=== PATIENT | female | born 1955 | race Hispanic/Latino ===

== ENCOUNTER 2017-10-14 16:44 | Inpatient (IN) | payer BC ==
[~2017-10-14] VITALS: Ht 170.2 cm; Wt 108.9 kg
--- OUTSIDE RECORDS SUMMARY | 2017-10-14 16:46 | XMS REPORT | Clinical Summary ---
Author Author [facility] Address Unknown Phone Unavailable Care Team Providers Care Assistant Professor Of Geography Name Role Phone Asked, Pcp PCP Unavailable Allergies Active Allergy Reactions Severity Noted Date Comments Allopurinol Other (See Comments) Low 01/02/2016 Per patient it Effects "immune system" Current Medications Prescription Sig. Disp. Refills Start End Date Status Date carvedilol (COREG) 6.25 Take 6.25 mg by mouth 2 Active MG tablet (two) times a day with meals. eltrombopag (PROMACTA) 75 Take 150 mg by mouth Active MG tablet daily. febuxostat (ULORIC) 40 mg Take 40 mg by mouth Active tablet daily. traMADol (ULTRAM) 50 mg TAKE ONE (1) TABLET(S) BY 3 10/14/19 Active tablet MOUTH TWICE A DAY. 16 methylPREDNISolone TAKE TWO (2) TABLET(S) BY Active (MEDROL) 4 MG tablet MOUTH ONCE A DAY. furosemide (LASIX) 40 MG furosemide 40 mg tablet Active tablet furosemide (LASIX) 40 mg Take 1 tablet (40 mg 60 tablet 0 11/20/19 Active tablet total) by mouth 2 (two) 17 times a day. diphenhydrAMINE HCl 2 % Apply 1 application 1 Tube 0 11/20/19 Active gel topically 2 (two) times a 17 day. insulin regular Premix 70/30 60-50-50u 10 mL 1 12/13/19 Active (HumuLIN-R, NovoLIN-R) TIDAC 17 100 unit/mL injectionIndications: Type 2 diabetes mellitus without complication, unspecified terminal manager insulin use status folic acid (FOLVITE) 1 MG TAKE ONE (1) TABLET(S) BY 6 01/18/20 Active tablet MOUTH DAILY. 17 INCONTROL PEN NEEDLE 31 USE FOUR (4) TIMES A DAY 90 each 3 02/05/20 Active gauge x 1/4" needle WITH INSULIN PENS. 17 levothyroxine (SYNTHROID, Take 1 tablet (125 mcg 90 tablet 3 02/05/20 Active LEVOXYL) 125 mcg tablet total) by mouth every 17 morning. liraglutide (VICTOZA) 0.6 Inject 0.2 mL (1.2 mg 6 mL 0 02/05/20 Active mg/0.1 mL (18 mg/3 mL) total) under the skin 17 pen injectorIndications: daily. Type 2 diabetes mellitus without complication, unspecified usp insulin use status pen needle, diabetic 31 Take one needle four 100 each 2 02/05/20 Active gauge x 3/16" times daily to use with 17 needleIndications: Type 2 insulin Pens diabetes mellitus without complication, unspecified terminal manager insulin use status SENSIPAR 30 mg tablet Take 1 tablet (30 mg 90 tablet 3 02/05/20 Active total) by mouth daily. 17 HUMULIN 70/30 KWIKPEN 100 INJECT 60 UNITS 12 mL 9 04/17/20 Active unit/mL (70-30) SUBCUTANEOUSLY BEFORE 17 BREAKFAST AND 50 UNITS WITH LUNCH AND DINNER. spironolactone TAKE ONE (1) TABLET(S) BY 30 tablet 4 05/15/19 Active (ALDACTONE) 50 MG tablet MOUTH ONCE A DAY. 18 ONETOUCH ULTRA TEST strip USE ONE (1) STRIP TO 60 strip 2 06/29/19 Active test strips CHECK BLOOD GLUCOSE THREE 18 TIMES A DAY (BEFORE BREAKFAST, LUNCH AND BEFORE DINNER) DIRECTED. furosemide (LASIX) 40 MG Take 40 mg by mouth 2 11/20/19 Discontin tablet (two) times a day. 17 ued METHYLPREDNISOLONE ORAL Take by mouth. 08/20/19 Discontin 18 ued insulin regular Inject under the skin 3 12/13/19 Discontin (HumuLIN-R, NovoLIN-R) (three) times a day 17 ued 100 unit/mL injection before meals. liraglutide (VICTOZA) 0.6 Inject 1.2 mg under the 11/19/19 Discontin mg/0.1 mL (18 mg/3 mL) skin daily. 17 ued pen injector cyanocobalamin, vitamin Place 0.5 tablets (2,500 90 tablet 3 12/20/19 08/20/19 Discontin B-12, (VITAMIN B-12) mcg total) under the 16 18 ued 5,000 mcg tablet, tongue daily. sublingualIndications: B12 deficiency folic acid (FOLVITE) 1 MG Take 1 tablet (1 mg 30 tablet 11 12/20/19 12/20/19 tabletIndications: B12 total) by mouth daily. 16 17 deficiency spironolactone TAKE ONE (1) TABLET(S) BY 6 12/16/19 05/15/19 Discontin (ALDACTONE) 50 MG tablet MOUTH ONCE A DAY. 16 18 ued ONETOUCH ULTRA TEST strip USE ONE (1) STRIP TO 3 12/03/19 02/05/20 Discontin test strips CHECK BLOOD GLUCOSE THREE 16 17 ued TIMES A DAY (BEFORE BREAKFAST, LUNCH AND BEFORE DINNER) DIRECTED FOR 90 DAYS. cinacalcet (SENSIPAR) 30 Take 1 tablet (30 mg 90 tablet 3 01/02/20 01/11/20 Discontin MG tablet total) by mouth daily for 16 17 ued 90 days. glimepiride (AMARYL) 4 MG TAKE ONE (1) TABLET(S) BY 1 03/16/20 Discontin tablet MOUTH TWICE A DAY. 16 17 ued levothyroxine (SYNTHROID, Take 1 tablet (125 mcg 90 tablet 3 07/11/19 02/05/20 Discontin LEVOXYL) 125 mcg tablet total) by mouth every 17 17 ued morning. SENSIPAR 30 mg tablet Take 1 tablet (30 mg 90 tablet 3 07/11/19 Discontin total) by mouth daily. 17 17 ued cholecalciferol, vitamin Take 1,000 Units by mouth 08/20/19 Discontin D3, (VITAMIN D3) 1,000 daily. 18 ued unit tablet HUMULIN 70/30 KWIKPEN 100 Premix 70/30, take 39 pen 3 09/21/1904/16 Discontin unit/mL (70-30) 50-40-40u TIDAC. Dispense 17 17 ued with insulin pens. Pharmacy to dispense 3 month supply with 3 refills. liraglutide (VICTOZA) 0.6 Inject 0.2 mL (1.2 mg 6 mL 0 11/19/1907/29 Discontin mg/0.1 mL (18 mg/3 mL) total) under the skin 17 17 ued pen injector daily. liraglutide (VICTOZA) 0.6 Inject 0.2 mL (1.2 mg 6 mL 0 12/13/1909/28 Discontin mg/0.1 mL (18 mg/3 mL) total) under the skin 17 17 ued pen injectorIndications: daily. Type 2 diabetes mellitus without complication, unspecified usp insulin use status pen needle, diabetic 31 Take one needle four 100 each 2 12/13/19 Discontin gauge x 3/16" times daily to use with 17 17 ued needleIndications: Type 2 insulin Pens diabetes mellitus without complication, unspecified terminal manager insulin use status SENSIPAR 30 mg tablet TAKE ONE (1) TABLET(S) BY 30 tablet 2 01/11/20 02/05/20 Discontin MOUTH DAILY. 17 17 ued liraglutide (VICTOZA) 0.6 Inject 0.2 mL (1.2 mg 6 mL 0 01/15/20 Discontin mg/0.1 mL (18 mg/3 mL) total) under the skin 17 17 ued pen injectorIndications: daily. Type 2 diabetes mellitus without complication, unspecified terminal manager insulin use status INCONTROL PEN NEEDLE 31 USE FOUR (4) TIMES A DAY 2 01/09/20 02/05/20 Discontin gauge x 1/4" needle WITH INSULIN PENS. 17 17 ued ONETOUCH ULTRA TEST strip USE ONE (1) STRIP TO 100 strip 3 02/05/20 06/27/19 Discontin test strips CHECK BLOOD GLUCOSE THREE 17 18 ued TIMES A DAY (BEFORE BREAKFAST, LUNCH AND BEFORE DINNER) DIRECTED FOR 90 DAYS. SENSIPAR 30 mg tablet Take 1 tablet (30 mg 90 tablet 3 02/05/20 Discontin total) by mouth 2 (two) 17 17 ued times a day before meals. 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 Partial response to eltrombopag Anemia in chronic kidney disease 09/11/2015 Overview: [id number] Encounters Date Type Specialty Care Team Description 10/02/2017 Orders Only Hematology Iris Ramirez MA Other specified diseases of blood and blood-forming organs (Primary Dx) 08/19/2017 Lab Lab Christina Vasquez MD Other specified diseases of blood and blood-forming organs 08/19/2017 Office Visit Hematology Christina Vasquez MD Aplastic anemia 08/13/2017 Orders Only Hematology Iris Ramirez MA Other specified diseases of blood and blood-forming organs (Primary Dx) 07/13/2017 Refill Endocrinology Peter Daily MD 06/27/2017 Refill Endocrinology Uzair Frederick MD 05/20/2017 Lab Lab Christina Vasquez MD Other specified diseases of blood and blood-forming organs 05/20/2017 Office Visit Hematology Christina Vasquez MD Aplastic anemia (Primary Dx) 05/15/2017 Orders Only Hematology Iris Ramirez MA Other specified diseases of blood and blood-forming organs (Primary Dx) 05/15/2017 Refill Hematology Christina Vasquez MD 04/16/2017 Refill Endocrinology Uzair Frederick MD 02/06/2017 Telephone Endocrinology Uzair Frederick MD 02/04/2017 Office Visit Endocrinology Uzair Frederick MD Hypothyroidism, unspecified type (Primary Dx); Type 2 diabetes mellitus without complication, unspecified usp insulin use status; Primary hyperparathyroidism; Hyperparathyroidism; 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 01/14/2017 Orders Only Internal Medicine Emeli White Type 2 diabetes mellitus without complication, unspecified usp insulin use status 01/10/2017 Refill Endocrinology Kit Luque MD 12/30/2016 Telephone Internal Medicine Julianna Brand MA 12/12/2016 Refill Internal Medicine Margarita Naidu MA 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 (Primary Dx); Hypercalcemia; Type 2 diabetes mellitus without complication, unspecified usp insulin use status 11/19/2016 Lab Lab Christina Vasquez MD Other specified diseases of blood and blood-forming organs 11/19/2016 Office Visit Hematology Christina Vasquez MD Aplastic anemia (Primary Dx) 11/18/2016 Orders Only Internal Medicine ChristopherDebEmeli 11/14/2016 Nurse Only Oncology Christina Vasquez MD Anemia in chronic kidney disease (Primary Dx) 11/01/2016 Orders Only Hematology Iris Ramirez MA Other specified diseases of blood and blood-forming organs (Primary Dx) 10/17/2016 Nurse Only Oncology Christina Vasquez MD Anemia in chronic kidney disease (Primary Dx) after 10/13/2016 Social History Tobacco Use Types Packs/Day Years Used Date Never Smoker Smokeless Tobacco: Never Used Alcohol Use Drinks/Week oz/Week Comments No Sex Assigned at Date Recorded Not on file Last Filed Vital Signs Vital Sign Reading Time Taken Blood Pressure 146/66 08/19/2017 1:39 PM CDT Pulse 74 08/19/2017 1:39 PM CDT Temperature 36.3 C (97.3 F) 08/19/2017 1:39 PM CDT Respiratory Rate 95 08/19/2017 1:39 PM CDT Oxygen Saturation 100% 02/04/2017 9:06 AM CDT Inhaled Oxygen - - Concentration Weight 111 kg (244 lb) 08/19/2017 1:39 PM CDT Height 170.2 cm (5' 7") 08/19/2017 1:39 PM CDT Body Mass Index 38.22 08/19/2017 1:39 PM CDT Plan of Treatment Health Maintenance Due Date Last Done Comments DIABETIC FOOT EXAM 09/30/1965 DIABETIC RETINAL EYE EXAM 09/30/1965 CERVICAL CANCER SCREENING 09/30/1976 BREAST CANCER SCREENING 09/30/2005 COLON CANCER SCREENING 09/30/2005 SHINGRIX VACCINE (#1) 09/30/2005 ZOSTER VACCINE 2015 INFLUENZA VACCINE 12/10/2017 Results * Flow cytometry evaluation (08/19/2017 1:44 PM) Component Value Ref Range Flow cytometry evaluation See link below for PDF Lab Report Specimen Performing Laboratory [facility] DEPARTMENT OF PATHOLOGY AND GENOMIC MEDICINE [address] [place] [address] * Estimated GFR (08/19/2017 1:44 PM) Only the most recent of 4 results within the time period is included. Component Value Ref Range GFR Non Af Amer 42 (A) mL/min/1.73 m2 GFR Af Amer 50 (A) mL/min/1.73 m2 Comment: Chronic kidney disease: <60 mL/min/1.73m2 Kidney failure: <15 mL/min/1.73m2 The estimated GFR is calculated from the IDMS-traceable Modification of Diet in Renal Disease Equation. The accuracy of the calculation is poor when the creatinine is normal. Calculated values >90 mL/min/1.73m2 are not reported. This equation has not been validated in children (<18 years), women, the elderly (>70 years), or ethnic groups other than Caucasians and Americans. Specimen Performing Laboratory Plasma specimen [facility] DEPARTMENT OF PATHOLOGY AND GENOMIC MEDICINE [address] [place], [place] [id number] * Manual differential (08/19/2017 1:44 PM) Component Value Ref Range Manual differential PERFORMED Neutrophils 76.0 (H) 39.0 - 69.0 % Lymphocytes 16.0 (L) 25.0 - 45.0 % Monocytes 7.0 0.0 - 10.0 % Eosinophils 1.0 0.0 - 5.0 % Basophils 0.0 0.0 - 1.0 % Metamyelocytes 0 % Promyelocytes 0 % Platelet slide review Decreased (A) Anisocytosis Moderate Polychromasia Moderate Ovalocytes Moderate Enlarged platelets Moderate (A) Giant platelets Occasional Specimen Performing Laboratory [facility] DEPARTMENT OF PATHOLOGY AND [facility] MEDICINE [address] [place] [id number] * Reticulocyte count (08/19/2017 1:44 PM) Component Value Ref Range Retic %, auto 2.9 (H) 0.5 - 2.1 % Retic absolute, auto 0.0992 0.0210 - 0.1155 m/uL Specimen Performing Laboratory [facility] DEPARTMENT OF PATHOLOGY AND GENOMIC MEDICINE [address] [place] [id number] * CBC with platelet and differential (08/19/2017 1:44 PM) Only the most recent of 5 results within the time period is included. Component Value Ref Range WBC 8.84 4.50 - 11.00 k/uL RBC 3.54 (L) 4.20 - 5.50 m/uL HGB 12.8 12.0 - 16.0 g/dL HCT 39.1 37.0 - 47.0 % MCV 110.5 (H) 82.0 - 100.0 fL MCH 36.2 (H) 27.0 - 34.0 pg MCHC 32.7 31.0 - 37.0 g/dL RDW - SD 58.0 (H) 37.0 - 55.0 fL MPV 11.1 8.8 - 13.2 fL Platelet count 94 (L) 150 - 400 k/uL Nucleated RBC 0.00 /100 WBC Neutrophils 76.0 (H) 39.0 - 69.0 % Lymphocytes 16.0 (L) 25.0 - 45.0 % Monocytes 7.0 0.0 - 10.0 % Eosinophils 1.0 0.0 - 5.0 % Basophils 0.0 0.0 - 1.0 % Specimen Performing Laboratory Blood [facility] DEPARTMENT OF PATHOLOGY AND GENOMIC MEDICINE [address] [place] [id number] * LDH (08/19/2017 1:44 PM) Component Value Ref Range LDH 238 (H) 87 - 225 U/L Specimen Performing Laboratory Plasma specimen [facility] DEPARTMENT OF PATHOLOGY AND GENOMIC MEDICINE [address] [place] [id number] * Ferritin level (08/19/2017 1:44 PM) Only the most recent of 3 results within the time period is included. Component Value Ref Range Ferritin level 711 (H) 13 - 150 ng/mL Specimen Performing Laboratory Plasma specimen [facility] DEPARTMENT OF PATHOLOGY AND GENOMIC MEDICINE [address] [place] [id number] * Comprehensive metabolic panel (08/19/2017 1:44 PM) Only the most recent of 3 results within the time period is included. Component Value Ref Range Sodium 143 135 - 148 mEq/L Potassium 4.0 3.5 - 5.0 mEq/L Chloride 102 98 - 112 mEq/L CO2 23 (L) 24 - 31 mEq/L Anion gap 18 (H) 7 - 15 mEq/L Comment: Starting from August , anion gap calculation no longer incorporates potassium. Please note the change. BUN 35 (H) 8 - 23 mg/dL Creatinine 1.3 (H) 0.5 - 0.9 mg/dL Glucose 94 65 - 99 mg/dL Calcium 10.1 8.8 - 10.2 mg/dL Protein 7.9 6.3 - 8.3 g/dL Comment: 4.6-7.0 g/dL 1 week 4.4-7.6 g/dL 7 months-1year 5.1-7.3 g/dL 1-2 years 5.6-7.5 g/dL >3 years 6.0-8.0 g/dL 18-150 6.3-8.3 g/dL Albumin 3.4 (L) 3.5 - 5.0 g/dL A/G ratio 0.8 0.7 - 3.8 Alkaline phosphatase 106 (H) 35 - 104 U/L AST 19 10 - 35 U/L ALT 12 5 - 50 U/L Total bilirubin 0.7 0.0 - 1.2 mg/dL Specimen Performing Laboratory Plasma specimen [facility] DEPARTMENT OF PATHOLOGY AND GENOMIC MEDICINE [address] [place] [address] * Smear review (05/20/2017 1:43 PM) Only the most recent of 4 results within the time period is included. Component Value Ref Range Platelet slide review Decreased (A) Anisocytosis Moderate Polychromasia Moderate Specimen Performing Laboratory [facility] DEPARTMENT OF PATHOLOGY AND [facility] MEDICINE [address] [place] [address] * Thyroid stimulating hormone (02/04/2017 10:30 AM) Component Value Ref Range TSH 4.29 0.40 - 4.50 mIU/L Specimen Performing Laboratory Blood [facility] Narrative FASTING:YES * T4, free (02/04/2017 10:30 AM) Component Value Ref Range T4, free 1.3 0.8 - 1.8 ng/dL Specimen Performing Laboratory [facility] Narrative FASTING:YES * Phosphorus level (02/04/2017 10:30 AM) Component Value Ref Range Phosphorus 2.8 2.5 - 4.5 mg/dL Specimen Performing Laboratory [facility] Narrative FASTING:YES * Parathyroid hormone (02/04/2017 10:30 AM) Component Value Ref Range PTH 75 (H) 14 - 64 pg/mL Comment: Interpretive Guide Intact PTH Calcium ------- Normal Parathyroid Normal Normal Hypoparathyroidism Low or Low Normal Low Hyperparathyroidism Primary Normal or High High Secondary High Normal or Low Tertiary High High Non-Parathyroid Hypercalcemia Low or Low Normal High Specimen Performing Laboratory [facility] Narrative FASTING:YES * Hemoglobin A1c (02/04/2017 10:30 AM) Component Value Ref Range Hemoglobin A1C 7.1 (H) <5.7 % of total Hgb Comment: For someone without known diabetes, a hemoglobin A1c value of 6.5% or greater indicates that they may have diabetes and this should be confirmed with a follow-up test. For someone with known diabetes, a value <7% indicates that their diabetes is well controlled and a value greater than or equal to 7% indicates suboptimal control. A1c targets should be individualized based on duration of diabetes, age, comorbid conditions, and other considerations. Currently, no consensus exists regarding use of hemoglobin A1c for diagnosis of diabetes for children. Specimen Performing Laboratory Blood [facility] Narrative FASTING:YES * Creatinine level (11/14/2016 7:31 AM) Only the most recent of 2 results within the time period is included. Component Value Ref Range Creatinine 1.5Comment: Testing performed on the ISTAT 0.5 - 1.5 mg/dL instrument by . Specimen Performing Laboratory Plasma specimen [facility] DEPARTMENT OF PATHOLOGY AND GENOMIC MEDICINE [address] [place] [id number] after 10/13/2016 Insurance Payer Benefit Subscriber ID Type Phone Address Plan / Group BCBS BCBS xxxxxxxxxxxx PPO CHOICE PPO/[employer]IKOL MISTRY PPO Home:
[2017-10-14 17:46] LABS: BASOPHILS % 0.1 % (0.0-1.0); HEMATOCRIT 28.1 % (34.2-44.1); LYMPHOCYTES # (AUTO) 1.5 (1.0-3.2); LYMPHOCYTES % 8.7 % (18.0-39.1); MEAN CORPUSCULAR HEMOGLOBIN 34.1 pg (28-32); MEAN CORPUSCULAR VOLUME 106.4 fL (81-99); MONOCYTES # (AUTO) 0.7 (0.2-0.8); MONOCYTES % 4.2 % (4.4-11.3); NEUTROPHILS # (AUTO) 14.9 (2.1-6.9); NEUTROPHILS % 85.3 % (38.7-80.0); RED BLOOD COUNT 2.64 x10e6/uL (3.6-5.1); RED CELL DISTRIBUTION WIDTH 14.9 % (11.7-14.4)
[2017-10-14 17:47] LABS: PLATELET COUNT 74 x10e3/uL (140-360)
[2017-10-14 17:54] LABS: INR 1.37; PROTHROMBIN TIME 15.9 seconds (11.9-14.5)
[2017-10-14 17:57] LABS: PARTIAL THROMBOPLASTIN TIME 41.3 seconds (23.8-35.5)
--- NOTE | 2017-10-14 18:16 | Diagnostic Imaging Report ---
PROCEDURE: A single AP view of the chest. COMPARISON: None. INDICATIONS: GOUT, WEAKNESS FINDINGS: See impression. IMPRESSION: 1. exam limited by soft tissue attenuation from body habitus. 2. Partial obscuration of the right hemidiaphragm and right lateral costophrenic angle, likely representing small pleural effusion and associated atelectasis. 3. Linear opacity in the right midlung may represent subsegmental atelectasis versus small amount of fluid in the minor fissure. 4. No definite consolidation. 5. Enlarged cardiac silhouette. Central pulmonary venous congestion. Agustin Bryant M.D. Dictated by: Agustin Bryant M.D. on 10/14/2017 at 18:18 Electronically approved by: Agustin Bryant M.D. on 10/14/2017 at 18:18
[2017-10-14 18:17] LABS: CALCIUM 9.8 mg/dL (8.4-10.2); CREATININE, SERUM 1.87 mg/dL (0.57-1.11)
[2017-10-14 18:18] LABS: ALBUMIN 1.8 g/dL (3.5-5.0); ALBUMIN/GLOBULIN RATIO 0.4 (0.8-2.0); CREATINE KINASE MB 0.7 ng/mL (0-5.0)
[2017-10-14 18:19] LABS: MAGNESIUM 1.1 MG/DL (1.3-2.1)
[2017-10-14 18:24] LABS: THYROID STIMULATING HORMONE 3.115 uIU/mL (0.350-4.940)
[2017-10-14 19:12] LABS: CLARITY,URINE SL CLOUDY (CLEAR); COLOR,URINE YELLOW (YELLOW)
[2017-10-14 19:13] LABS: BILIRUBIN,URINE NEGATIVE (NEGATIVE); KETONES,URINE NEGATIVE (NEGATIVE); LEUKOCYTE ESTERASE ,URINE TRACE (NEGATIVE); NITRITE,URINE NEGATIVE (NEGATIVE); PROTEIN,URINE DIPSTICK TRACE (NEGATIVE); URINE UROBILINOGEN 0.2 mg/dL (0.2 - 1)
[2017-10-14] MEDS ORDERED: MAGNESIUM SULFATE 2GM/50ML 25 ML IV ONE (19:15)
[2017-10-14 19:23] LABS: RBC,URINE 0-5 /HPF (0-5)
[2017-10-14 19:24] LABS: AMORPHOUS SEDIMENT,URINE FEW (FEW); BACTERIA,URINE MANY /HPF; EPITHELIAL CELLS,URINE RARE /LPF; MUCUS,URINE FEW (RARE)
--- NOTE | 2017-10-14 20:43 | Diagnostic Imaging Report ---
PROCEDURE: CT CHEST WITHOUT CONTRAST CT scan of the chest WITHOUT intravenous contrast, using standard protocol. TECHNIQUE: The chest was scanned utilizing a multidetector helical scanner from the apex to the level of the adrenal glands. No IV contrast was administered due to low GFR. Coronal and sagittal multiplanar reformations were obtained. COMPARISON: [facility], DX, CHEST SINGLE (PORTABLE), 10/14/2017, 17:53. INDICATIONS: ABNORMAL CHEST X-RAY FINDINGS: Lines/tubes: None. Lungs and Airways: Multiple linear opacities in the lingula, bilateral lower lobes, and right middle lobe, likely representing subsegmental atelectasis or scarring. 3.7 x 1.8 cm focal subpleural density in the posteromedial right lower lobe (series 3, image 43), with multiple small airways and vessels running around it, consistent with round atelectasis. A triangular-shaped density in the posterior aspect of the right middle lobe against the major fissure (series 2, image 47 and sagittal image 28) has a fluid density component in its superior aspect (series 2, image 45 and sagittal image 34). Atelectatic changes are also noted in the posterior right lower lobe (series 2 image 54). Pleura: Suspected small right pleural effusion. Heart and mediastinum: Thyroid is unremarkable. Mild cardiomegaly. Atherosclerotic calcification of the coronary arteries and thoracic aorta. Aorta is not aneurysmal. Main pulmonary artery is enlarged, measuring 3.9 cm. Lymph nodes: No mediastinal, hilar, or axillary adenopathy. Abdomen: Limited views of the upper abdomen show no abnormality within the visualized liver, spleen, pancreas, or kidneys. 2.4 x 1.7 x 1.7 cm solid nodule in the right adrenal gland (series 2, image 61), which measures 30 HU. 1.2 and 2.0 cm peripherally calcified splenic artery aneurysms (series 2, image 55 and 57 and coronal images 54 and 56). Bones: No aggressive lytic lesion. 2 mm calcification in the left breast, likely representing a calcified fibroadenoma. IMPRESSION: 1. 3.7 cm focal subpleural density in the posteromedial right lower lobe consistent with round atelectasis. A triangular-shaped density in the posterior aspect of the right middle lobe against the major fissure likely represents another focus of round atelectasis. Given the partly loculated fluid superior to it. Atelectatic changes are noted in the right lower lobe, with a suspected small pleural effusion. Further evaluation, including determination of empyema, is limited by the lack of intravenous contrast. 2. Subsegmental atelectasis or scarring in the lingula, bilateral lower lobes, and right middle lobe. 3. Mild cardiomegaly. 4. Enlarged main pulmonary artery, suggesting pulmonary hypertension. 5. 2.4 cm solid nodule in the right adrenal gland, which remains indeterminate. 6. 1.2 and 2.0 cm peripherally calcified splenic artery aneurysms. Agustin Bryant M.D. Dictated by: Agustin Bryant M.D. on 10/14/2017 at 20:45 Electronically approved by: Agustin Bryant M.D. on 10/14/2017 at 20:45
[2017-10-14] MEDS ORDERED: SODIUM CHLORIDE 0.9% 1000ML 1,000 ML IV SCH (21:19)
[2017-10-14] MEDS: SODIUM CHLORIDE 0.9% 1000ML 1,000 ML IV SCH (21:26)
--- OUTSIDE RECORDS SUMMARY | 2017-10-14 21:27 | XMS REPORT | Clinical Summary ---
Author Author [facility] Address Unknown Phone Unavailable Care Team Providers Care Director Of Accounts Payable Name Role Phone Asked, Pcp PCP Unavailable [...] Type 2 diabetes mellitus without complication, unspecified termite control servicer insulin use status folic acid (FOLVITE) 1 [...] Type 2 diabetes mellitus without complication, unspecified group home insulin use status pen needle, diabetic 31 Take one needle four 100 each 2 02/05/20 Active gauge x 3/16" times daily to use with 17 needleIndications: Type 2 insulin Pens diabetes mellitus without complication, unspecified termite control servicer insulin use status SENSIPAR 30 mg tablet [...] Type 2 diabetes mellitus without complication, unspecified group home insulin use status pen needle, diabetic 31 Take one needle four 100 each 2 12/13/19 Discontin gauge x 3/16" times daily to use with 17 17 ued needleIndications: Type 2 insulin Pens diabetes mellitus without complication, unspecified termite control servicer insulin use status SENSIPAR 30 mg tablet TAKE ONE (1) TABLET(S) BY 30 tablet 2 01/11/20 02/05/20 Discontin MOUTH DAILY. 17 17 ued liraglutide (VICTOZA) 0.6 Inject 0.2 mL (1.2 mg 6 mL 0 01/15/20 Discontin mg/0.1 mL (18 mg/3 mL) total) under the skin 17 17 ued pen injectorIndications: daily. 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 01/14/2017 Orders Only Internal Medicine Emeli White Type 2 diabetes mellitus without complication, unspecified group home insulin use status 01/10/2017 Refill Endocrinology Kit Luque MD 12/30/2016 Telephone Internal Medicine Julianna Brand MA 12/12/2016 Refill Internal Medicine Margarita Naidu MA 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 Specimen Performing Laboratory Plasma specimen [facility] DEPARTMENT OF PATHOLOGY AND GENOMIC MEDICINE [address] [place], [place] [id number] * Manual differential (08/19/2017 1:44 PM) Component [...] (A) Giant platelets Occasional Specimen Performing Laboratory [facility] DEPARTMENT OF PATHOLOGY AND [facility] MEDICINE [address] [place] [address] * Reticulocyte count (08/19/2017 1:44 PM) Component Value Ref Range Retic %, auto 2.9 (H) 0.5 - 2.1 % Retic absolute, auto 0.0992 0.0210 - 0.1155 m/uL Specimen Performing Laboratory [facility] DEPARTMENT OF PATHOLOGY AND GENOMIC MEDICINE [address] [place] [id number] * CBC with platelet and differential (08/19/2017 [...] - 1.0 % Specimen Performing Laboratory Blood [facility] DEPARTMENT OF PATHOLOGY AND GENOMIC MEDICINE [address] [place] [id number] * LDH (08/19/2017 1:44 PM) Component Value Ref Range LDH 238 (H) 87 - 225 U/L Specimen Performing Laboratory Plasma specimen [facility] DEPARTMENT OF PATHOLOGY AND GENOMIC MEDICINE [address] [place] [phone] * Ferritin level (08/19/2017 1:44 PM) Only the most recent of 3 results within the time period is included. Component Value Ref Range Ferritin level 711 (H) 13 - 150 ng/mL Specimen Performing Laboratory Plasma specimen [facility] DEPARTMENT OF PATHOLOGY AND GENOMIC MEDICINE [address] [place] [address] * Comprehensive metabolic panel (08/19/2017 1:44 PM) [...] 1.2 mg/dL Specimen Performing Laboratory Plasma specimen [facility] DEPARTMENT OF PATHOLOGY AND GENOMIC MEDICINE [address] [place] [address] * Smear review (05/20/2017 1:43 PM) Only the most recent of 4 results within the time period is included. Component Value Ref Range Platelet slide review Decreased (A) Anisocytosis Moderate Polychromasia Moderate Specimen Performing Laboratory [facility] DEPARTMENT OF PATHOLOGY AND [facility] MEDICINE [address] [place] [address] * Thyroid stimulating hormone (02/04/2017 10:30 AM) [...] by . Specimen Performing Laboratory Plasma specimen [facility] DEPARTMENT OF PATHOLOGY AND GENOMIC MEDICINE [address] [place] [address] after 10/13/2016 Insurance Payer Benefit Subscriber ID Type Phone Address Plan / Group BCBS BCBS xxxxxxxxxxxx PPO CHOICE PPO/MAIKOL MISTRY PPO Home:
--- OUTSIDE RECORDS SUMMARY | 2017-10-14 21:27 | XMS REPORT ---
Author Author [facility] Address Unknown Phone Unavailable Care Team Providers Care Snowboard Designer Name Role Phone JOE SKINNER Unavailable Unavailable Problems This patient has no known problems. Allergies, Adverse Reactions, Alerts This patient has no known allergies or adverse reactions. Medications This patient has no known medications. Results Test Description Test Time Test Comments Text Results Atomic Results Result Comments CT CHEST WO [place] [address] Patient Name: ASHLEY MANZANO MR #: [id number] : 1955 Age/Sex: 62/F Req #: [id number] Adm Physician: Ordered by: ROSIE VANCE HAT CLEANER Report #: [id number] Location: ER Room/Bed: Procedure: [id number] CT/CT CHEST WO Exam Date: 10/14/17 Exam Time: 1939 REPORT STATUS: Signed PROCEDURE: CT CHEST WITHOUT CONTRAST CT scan of the chest WITHOUT intravenous contrast, using standard protocol. TECHNIQUE: The chest was scanned utilizing a multidetector helical scanner from the apex to the level of the adrenal glands. No IV contrast was administered due to low GFR. Coronal and sagittal multiplanar reformations were obtained. COMPARISON: [facility], , CHEST SINGLE ( PORTABLE), 10/14/2017, 17:53. INDICATIONS: ABNORMAL CHEST X-RAY FINDINGS: Lines/tubes: None. Lungs and Airways: Multiple linear opacities in the lingula, bilateral lower lobes, and right middle lobe, likely representing subsegmental atelectasis or scarring. 3.7 x 1.8 cm focal subpleural density in the posteromedial right lower lobe (series 3, image 43), with multiple small airways and vessels running around it, consistent with round atelectasis. A triangular-shaped density in the posterior aspect of the right middle lobe against the major fissure (series 2 , image 47 and sagittal image 28) has a fluid density component in its superior aspect (series 2, image 45 and sagittal image 34). Atelectatic changes are also noted in the posterior right lower lobe (series 2 image 54) . Pleura: Suspected small right pleural effusion. Heart and mediastinum : Thyroid is unremarkable. Mild cardiomegaly. Atherosclerotic calcification of the coronary arteries and thoracic aorta. Aorta is not aneurysmal. Main pulmonary artery is enlarged, measuring 3.9 cm. Lymph nodes: No mediastinal, hilar, or axillary adenopathy. Abdomen: Limited views of the upper abdomen show no abnormality within the visualized liver, spleen, pancreas, or kidneys. 2.4 x 1.7 x 1.7 cm solid nodule in the right adrenal gland (series 2, image 61), which measures 30 HU. 1.2 and 2.0 cm peripherally calcified splenic artery aneurysms (series 2, image 55 and 57 and coronal images 54 and 56). Bones: No aggressive lytic lesion. 2 mm calcification in the left breast, likely representing a calcified fibroadenoma. IMPRESSION: 1. 3.7 cm focal subpleural density in the posteromedial right lower lobe consistent with round atelectasis. A triangular-shaped density in the posterior aspect of the right middle lobe against the major fissure likely represents another focus of round atelectasis. Given the partly loculated fluid superior to it. Atelectatic changes are noted in the right lower lobe, with a suspected small pleural effusion. Further evaluation, including determination of empyema, is limited by the lack of intravenous contrast. 2. Subsegmental atelectasis or scarring in the lingula, bilateral lower lobes, and right middle lobe. 3. Mild cardiomegaly. 4. Enlarged main pulmonary artery, suggesting pulmonary hypertension. 5. 2.4 cm solid nodule in the right adrenal gland, which remains indeterminate. 6. 1.2 and 2.0 cm peripherally calcified splenic artery aneurysms. Monroe. Annette, M.D. Dictated by: Love Bryant M.D. on 10/14/2017 at 20:45 Electronically approved by: Love Bryant M.D. on 10/14/2017 at 20:45 Dictated By: LOVE BRYANT MD 44 Transcribed By: PENNIE on 10/14/172044 COPY TO: ROSIE VANCE HAT CLEANER CHEST SINGLE (PORTABLE) [place] [address] Patient Name: ASHLEY MANZANO MR #: [id number] : 1955 Age/Sex: 62/F Req #: [id number] Adm Physician: Ordered by: ROSIE VANCE HAT CLEANER Report #: [id number] Location: ER Room/Bed: Procedure: [id number] DX/CHEST SINGLE (PORTABLE) Exam Date: 10/14/17 Exam Time: 1753 REPORT STATUS: Signed PROCEDURE: A single AP view of the chest. COMPARISON: None. INDICATIONS: GOUT, WEAKNESS FINDINGS: See impression. IMPRESSION: 1. exam limited by soft tissue attenuation from body habitus. 2. Partial obscuration of the right hemidiaphragm and right lateral costophrenic angle, likely representing small pleural effusion and associated atelectasis. 3. Linear opacity in the right midlung may represent subsegmental atelectasis versus small amount of fluid in the minor fissure. 4. No definite consolidation. 5. Enlarged cardiac silhouette. Central pulmonary venous congestion. Love Bryant M.D. Dictated by: Love Bryant M.D. on 10/14/2017 at 18:18 Electronically approved by: Love Bryant M.D. on 2017 at 18:18 Dictated By: LOVE BRYANT MD 18 Transcribed By: PENNIE on 1818 COPY TO: ROSIE VANCE NP
[2017-10-14] MEDS ORDERED: ONDANSETRON HCL INJ 2 MG/ML VIAL IV PRN (21:30)
[2017-10-14] MEDS ORDERED: DEXTROSE 50% SYRINGE 50 ML IV PRN (21:30)
[2017-10-14] MEDS ORDERED: CEFTRIAXONE SOD 1 GM VIAL IV ONE (21:30)
[2017-10-15] VITALS (9 sets, daily range): BP systolic 121–149; BP diastolic 58–65
[2017-10-15] MEDS ORDERED: SENSIPAR30 MG PO (01:59)
[2017-10-15] MEDS ORDERED: LEVOTHYROXINE112 MCG PO (01:59)
[2017-10-15] MEDS ORDERED: VICTOZA 2-0.6 MG/0.1 (01:59)
[2017-10-15] MEDS ORDERED: ULORIC40 MG PO (01:59)
[2017-10-15] MEDS ORDERED: FUROSEMIDE40 MG PO (01:59)
[2017-10-15] MEDS ORDERED: CARVEDILOL3.125 MG PO (01:59)
[2017-10-15] MEDS ORDERED: PROMACTA75 MG PO (01:59)
[2017-10-15] MEDS ORDERED: SPIRONOLACTONE25 MG PO (01:59)
[2017-10-15] MEDS ORDERED: FOLIC ACID1 MG PO (01:59)
[2017-10-15] MEDS: SODIUM CHLORIDE 0.9% 1000ML 1,000 ML IV SCH (06:10)
[2017-10-15 06:48] LABS: BASOPHILS % 0.1 % (0.0-1.0); HEMATOCRIT 23.9 % (34.2-44.1); HEMOGLOBIN 7.8 g/dL (12.0-16.0); LYMPHOCYTES # (AUTO) 1.1 (1.0-3.2); LYMPHOCYTES % 9.3 % (18.0-39.1); MEAN CORPUSCULAR HEMOGLOBIN 34.7 pg (28-32); MEAN CORPUSCULAR HGB CONC 32.6 g/dL (31-35); MEAN CORPUSCULAR VOLUME 106.2 fL (81-99); MONOCYTES # (AUTO) 0.5 (0.2-0.8); MONOCYTES % 4.5 % (4.4-11.3); NEUTROPHILS # (AUTO) 9.9 (2.1-6.9); NEUTROPHILS % 84.7 % (38.7-80.0); PLATELET COUNT 58 x10e3/uL (140-360); RED BLOOD COUNT 2.25 x10e6/uL (3.6-5.1); RED CELL DISTRIBUTION WIDTH 14.9 % (11.7-14.4)
[2017-10-15 07:13] LABS: ALBUMIN 1.5 g/dL (3.5-5.0); ALBUMIN/GLOBULIN RATIO 0.4 (0.8-2.0); ANION GAP 11.6 mmol/L (8-16); CALCIUM 9.5 mg/dL (8.4-10.2); CREATININE, SERUM 1.65 mg/dL (0.57-1.11); POTASSIUM 4.6 mmol/L (3.5-5.1)
[2017-10-15] MEDS ORDERED: INSULIN REGULAR, HUMAN 100 UNIT/1 ML 3ML VIAL SQ SCH (07:30)
[2017-10-15] MEDS ORDERED: DEXTROSE 50% SYRINGE 50 ML IV PRN (09:45)
[2017-10-15] MEDS ORDERED: NON-FORMULARY MEDICATION (Liraglutide (Victoza 2-Pak) 1.8 MG) INJ SCH ×2 (09:45)
--- NOTE | 2017-10-15 11:04 | History and Physical ---
This is a patient of Dr. Douglas, Dr. Crockett and Dr. Martinez. Patient with a history of generalized weakness and inability to eat. History of chronic kidney disease. History of gouty arthritis. History of aplastic anemia, which she relates to allopurinol and Colcrys. She is currently on Promacta. Her platelet counts usually run about 50,000. She has complained over the last few weeks of swelling in the right hand, wrist, knees and ankles. Leslie to be a flare of her gout. She was given steroids but has had an equivocal response. She has a history of diabetes and hypothyroidism. No surgical history. 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 Medications include Coreg, Sensipar, Promacta, folic acid, Uloric, Lasix, Levoxyl, Victoza and Aldactone. She has been weak. She denies cough or shortness of breath. She has been diabetic for 15 years. PHYSICAL EXAMINATION GENERAL: A well-developed, moderately obese, white female in no acute distress. VITALS: Temperature 98, pulse 71, respirations 18, blood pressure 128/51. HEENT: Head is normocephalic, atraumatic. NECK: Trachea midline. LUNGS: Clear. HEART: Regular rhythm. ABDOMEN: Nontender. EXTREMITIES: There is swelling in the hands and ankles. She has a history of aplastic anemia. LABS: White count on admission 17,000, hemoglobin 9, neutrophils 14.9, 85%. There were also some immature forms. Sed rate was 109. BUN 71, creatinine 1.63. Elevated blood sugar. Moderately elevated alkaline phosphatase. Albumin is quite low. PLAN: IV fluids. Therapy of urinary tract infection. Hematologic and ID opinions. Corticosteroids once the patient has been stabilized. Thank you for this kind referral. Job#: [id number] cc:ROSIE DOUGLAS M.D.
[2017-10-15] MEDS ORDERED: ACETAMINOPHEN 325 MG TAB PO PRN (11:30)
[2017-10-15] MEDS ORDERED: CELECOXIB 100 MG CAP PO PRN (11:30)
[2017-10-15] MEDS: ACETAMINOPHEN/CODEINE 300MG - 30MG TAB PO PRN (11:39)
[2017-10-15 12:25] LABS: CREATININE,URINE RANDOM 102.57 mg/dL (47-110)
[2017-10-15] MEDS: INSULIN LISPRO 100 UNIT/1 ML 3ML VIAL SQ SCH ×3 (12:51→20:39)
--- NOTE | 2017-10-15 14:36 | Consultation ---
DATE OF CONSULTATION: REASON FOR CONSULTATION: Joint pain. This patient who is a very pleasant 62 year old with a history of chronic kidney disease, history of gout, aplastic anemia. The patient comes in with worsening pain of all joints. She has been seeing Dr. Crockett as an outpatient. She has been taking several medications. Nothing is working. The pain is so bad now that it is debilitating. The patient is in bed. She has redness and swelling of her right wrist, both ankles. The patient is admitted. Infectious disease was consulted. The patient does not per se complaining of fever or chills. She is telling me she recently finished a course of Medrol pack without any improvement. Patient denies any history of trauma. Denies any history of fever or chills before this. PAST MEDICAL HISTORY: Hypothyroidism, gout and hypertension. PAST SURGICAL HISTORY: Denies. ALLERGIES: NKA. SOCIAL HISTORY: There is no smoking, drug abuse or alcohol abuse. MEDICATION LIST: Reviewed. PHYSICAL EXAMINATION GENERAL: She is currently alert and oriented. Does not seem to be in acute distress. VITAL SIGNS: Stable. Afebrile. HEENT: She is nonicteric. NECK: Supple. CHEST: Clear. CORE: S1 and S2. No murmur. ABDOMEN: Soft. Bowel sounds present. No tenderness. No hepatosplenomegaly. EXTREMITIES: No edema. There is erythema and edema of both ankles and the wrist. IMPRESSION: Acute gout flare-up. Will put on Solu-Medrol. Agree with Rocephin. Will get blood cultures to rule out other possibilities of infections. Will follow with you. Job#: [id number] SOBIA
--- NOTE | 2017-10-15 16:35 | Consultation ---
DATE OF CONSULTATION: October 15, 2017 RENAL CONSULTATION ADMITTING PHYSICIAN: Dr. Nitin Hamm REASON FOR CONSULTATION: Acute kidney injury on chronic kidney disease. HISTORY OF PRESENT ILLNESS: This 62-year-old female, with history of stage-3 chronic kidney disease [facility], was sent to [facility] by her primary care doctor for volume depletion and gout. The patient states she was in her usual state of health until September 08 when she developed a gout flare. The patient was treated with steroids; however, she did not improve. She was taking in very little by mouth. She began to feel weaker and weaker and was sent to the hospital. The patient was found to have thrombocytopenia, anemia, leukocytosis, as well as renal failure. The patient was admitted, and nephrology consultation was called. REVIEW OF SYSTEMS: As above. Positive pain in her hands as well as her legs. No shortness of breath. Some localized swelling around her joints. All other systems negative. PAST MEDICAL HISTORY 1. Chronic kidney disease, stage 3. Baseline creatinine around 1.3 per patient. 2. Gout. 3. History of aplastic anemia. 4. Diabetes. 5. Hypothyroidism. PAST SURGICAL HISTORY: History of chest tube. SOCIAL HISTORY: No tobacco. No alcohol. No IV drugs. FAMILY HISTORY: No family history of kidney disease. ALLERGIES: ALLOPURINOL AND COLCRYS. CURRENT MEDICATIONS: See list. PHYSICAL EXAMINATION VITALS: Blood pressure 149/64, pulse 78, respiratory rate 18, temperature 96.6. GENERAL: No apparent distress. HEENT: Oropharynx is clear. No scleral icterus. No periorbital edema. NECK: Supple. No elevation in jugular venous pressure. No lymphadenopathy, although difficult to assess due to body habitus. CHEST: Clear to auscultation anteriorly with decreased breath sounds at the bases. CARDIOVASCULAR: Regular rhythm. No murmurs or rubs. ABDOMEN: Soft. Positive bowel sounds. No tenderness. No rebound. EXTREMITIES: Trace leg edema. Localized edema in hands, right greater than left. SKIN: Warm. IMAGING: CT of the chest: A 3.7-cm focal subpleural density in the posteromedial right lower lobe consistent with round atelectasis. Mild cardiomegaly. Subsegmental atelectasis. Enlarged pulmonary artery suggesting pulmonary hypertension. A 2.4-cm solid nodule in the right adrenal gland, which remains indeterminate. Chest x-ray: Vascular congestion. LABS: White count 11.6, down from 17.4. Hemoglobin 7.8, down from 9. Platelets 58, down from 74. Sed rate 109. Sodium 131, potassium 4.6, chloride 99, CO2 25, BUN 71, creatinine 1.65, glucose 194. Uric acid 2.4. Alk phos 157. Albumin 1.5. Total protein 5.6. Urine: 6-10 WBCs, many bacteria, trace protein. ASSESSMENT AND PLAN 1. Acute kidney injury on stage-3 chronic kidney disease, suspect secondary to acute tubular necrosis. Will discontinue Celebrex and continue with Lasix. Will check urine studies and avoid all other nephrotoxic medications. 2. Volume overload on exam. Continue Lasix and spironolactone. Discontinue IV fluids as above. 3. Gout. Uric acid is 2.4. Unclear if this is the actual etiology of her symptoms. 4. Hyponatremia. Restrict the patient's free water. Continue with diuretics. 5. Adrenal adenoma. Will need outpatient workup. 6. Hypertension. Blood pressure controlled. 7. Anemia and thrombocytopenia. Hematology has been consulted. Job#: [id number]
[2017-10-15] MEDS ORDERED: ELTROMBOPAG OLAMINE 75 MG PO SCH (17:00)
[2017-10-15] MEDS ORDERED: FUROSEMIDE 40 MG TAB PO SCH (17:00)
[2017-10-15] MEDS: FUROSEMIDE 40 MG TAB PO SCH (17:23)
[2017-10-15] MEDS: METHYLPREDNISOLONE SOD SUCC 40 MG/ML VIAL IV SCH (20:38)
[2017-10-15] MEDS ORDERED: CEFTRIAXONE SOD 1 GM VIAL IV SCH (21:30)
[2017-10-15] MEDS: CEFTRIAXONE SOD 1 GM VIAL IV SCH (22:00)
[2017-10-16] VITALS (8 sets, daily range): BP systolic 116–153; BP diastolic 57–66
[2017-10-16] MEDS: LEVOTHYROXINE SODIUM 125 MCG TAB PO SCH (06:15)
[2017-10-16 07:30] LABS: ANION GAP 12.2 mmol/L (8-16); CALCIUM 10.2 mg/dL (8.4-10.2); CREATININE, SERUM 1.25 mg/dL (0.57-1.11); POTASSIUM 5.2 mmol/L (3.5-5.1)
[2017-10-16] MEDS ORDERED: FUROSEMIDE 40 MG TAB PO SCH (07:30)
[2017-10-16] MEDS: INSULIN LISPRO 100 UNIT/1 ML 3ML VIAL SQ SCH ×4 (07:30→20:46)
[2017-10-16 07:39] LABS: HEMATOCRIT 24.9 % (34.2-44.1); HEMOGLOBIN 7.9 g/dL (12.0-16.0); MEAN CORPUSCULAR HEMOGLOBIN 34.1 pg (28-32); MEAN CORPUSCULAR HGB CONC 31.7 g/dL (31-35); MEAN CORPUSCULAR VOLUME 107.3 fL (81-99); NEUTROPHILS % 82.9 % (38.7-80.0); PLATELET COUNT 61 x10e3/uL (140-360); RED BLOOD COUNT 2.32 x10e6/uL (3.6-5.1); RED CELL DISTRIBUTION WIDTH 14.8 % (11.7-14.4)
[2017-10-16 07:40] LABS: BASOPHILS % 0.1 % (0.0-1.0); LYMPHOCYTES % 13.8 % (18.0-39.1); MONOCYTES # (AUTO) 0.1 (0.2-0.8); MONOCYTES % 1.6 % (4.4-11.3); NEUTROPHILS # (AUTO) 5.8 (2.1-6.9)
[2017-10-16] MEDS ORDERED: LEVOTHYROXINE SODIUM 112 MCG TAB PO SCH (09:00)
[2017-10-16] MEDS ORDERED: NON-FORMULARY MEDICATION (Liraglutide (Victoza 2-Pak) 1.8 MG) SCH (09:00)
[2017-10-16] MEDS ORDERED: SPIRONOLACTONE 25 MG TAB PO SCH (09:00)
[2017-10-16] MEDS: ELTROMBOPAG OLAMINE 75 MG PO SCH ×2 (09:00→17:00)
[2017-10-16] MEDS: CARVEDILOL 3.125 MG TAB PO SCH (09:00)
[2017-10-16] MEDS: FEBUXOSTAT 80 MG TAB PO SCH (09:12)
[2017-10-16] MEDS: METHYLPREDNISOLONE SOD SUCC 40 MG/ML VIAL IV SCH (09:12)
[2017-10-16] MEDS: FOLIC ACID 1 MG TAB PO SCH (09:12)
[2017-10-16] MEDS: CINACALCET 30 MG TAB PO SCH (09:12)
[2017-10-16] MEDS: FUROSEMIDE 40 MG TAB PO SCH ×2 (09:12→17:35)
[2017-10-16] MEDS: ENOXAPARIN SOD INJ 40 MG/0.4 ML SYR SC SCH (10:05)
[2017-10-16] MEDS: PANTOPRAZOLE SOD 40 MG TABEC PO SCH (10:05)
[2017-10-16 10:58] LABS: ANISOCYTOSIS SLIGHT; HYPOCHROMASIA MODERATE; POIKILOCYTOSIS SLIGHT
[2017-10-16 10:59] LABS: PLATELET ESTIMATE MODERATELY DECREASED; PLATELET MORPHOLOGY COMMENT FEW LARGE; RBC MORPHOLOGY COMMENT NORMAL
[2017-10-16] MEDS ORDERED: INSULIN DETEMIR 100 UNIT/ML PEN SQ ONE (16:45)
[2017-10-16] MEDS: CEFTRIAXONE SOD 1 GM VIAL IV SCH (20:46)
[2017-10-17] VITALS (8 sets, daily range): BP systolic 107–156; BP diastolic 56–70
[2017-10-17] MEDS: LEVOTHYROXINE SODIUM 125 MCG TAB PO SCH (06:02)
[2017-10-17 06:59] LABS: ANION GAP 11.6 mmol/L (8-16); CALCIUM 10.5 mg/dL (8.4-10.2); CREATININE, SERUM 1.06 mg/dL (0.57-1.11); POTASSIUM 4.6 mmol/L (3.5-5.1)
[2017-10-17] MEDS: ELTROMBOPAG OLAMINE 75 MG PO SCH ×2 (09:00→17:00)
[2017-10-17] MEDS: METHYLPREDNISOLONE SOD SUCC 40 MG/ML VIAL IV SCH (09:02)
[2017-10-17] MEDS: FUROSEMIDE 40 MG TAB PO SCH (09:04)
[2017-10-17] MEDS: ENOXAPARIN SOD INJ 40 MG/0.4 ML SYR SC SCH (09:04)
[2017-10-17] MEDS: FEBUXOSTAT 80 MG TAB PO SCH (09:04)
[2017-10-17] MEDS: CARVEDILOL 3.125 MG TAB PO SCH (09:04)
[2017-10-17] MEDS: FOLIC ACID 1 MG TAB PO SCH (09:04)
[2017-10-17] MEDS: PANTOPRAZOLE SOD 40 MG TABEC PO SCH (09:04)
[2017-10-17] MEDS: CINACALCET 30 MG TAB PO SCH (09:04)
[2017-10-17] MEDS: INSULIN LISPRO 100 UNIT/1 ML 3ML VIAL SQ SCH ×4 (09:07→20:30)
--- NOTE | 2017-10-17 09:58 | Diagnostic Imaging Report ---
PROCEDURE: X-ray chest PA and lateral Comparison: 10/14/17 INDICATIONS: UTI FINDINGS: Unchanged cardiomegaly and pulmonary venous congestion. Linear opacity in the right mid and lower lung zones compatible with subsegmental atelectasis. Trace right pleural effusion with adjacent right lower lobe opacity, likely atelectasis. No acute osseous abnormality. CONCLUSION: Stable examination relative to 10/14/2017. Dictated by: Nitin Quintanilla M.D. on 10/17/2017 at 10:01 Electronically approved by: Nitin Quintanilla M.D. on 10/17/2017 at 10:01
[2017-10-17] MEDS: ACETAMINOPHEN/CODEINE 300MG - 30MG TAB PO PRN (13:14)
[2017-10-17] MEDS ORDERED: INSULIN DETEMIR 100 UNIT/ML PEN SQ ONE (20:15)
[2017-10-17] MEDS: CEFTRIAXONE SOD 1 GM VIAL IV SCH (21:08)
[2017-10-18] VITALS (7 sets, daily range): BP systolic 113–134; BP diastolic 52–67
[2017-10-18] MEDS: LEVOTHYROXINE SODIUM 125 MCG TAB PO SCH (05:39)
[2017-10-18 07:04] LABS: HEMATOCRIT 26.1 % (34.2-44.1); HEMOGLOBIN 8.3 g/dL (12.0-16.0); MEAN CORPUSCULAR HGB CONC 31.8 g/dL (31-35); PLATELET COUNT 58 x10e3/uL (140-360); RED BLOOD COUNT 2.44 x10e6/uL (3.6-5.1); RED CELL DISTRIBUTION WIDTH 14.6 % (11.7-14.4)
[2017-10-18 07:31] LABS: ANION GAP 16.6 mmol/L (8-16); CALCIUM 10.4 mg/dL (8.4-10.2); CREATININE, SERUM 1.08 mg/dL (0.57-1.11); POTASSIUM 4.6 mmol/L (3.5-5.1)
[2017-10-18 07:58] LABS: ANISOCYTOSIS S; BAND NEUTROPHILS % (MANUAL) 2 %; LYMPHOCYTES % (MANUAL) 20 % (19-48); METAMYELOCYTES % (MANUAL) 1 % (0-0); MONOCYTES % (MANUAL) 9 % (3.4-9.0); NEUTROPHILS % (MANUAL) 68 % (40-74); PLATELET ESTIMATE MODERATELY DECREASED; PLATELET MORPHOLOGY COMMENT NORMAL; RBC MORPHOLOGY COMMENT NORMAL
[2017-10-18] MEDS: METHYLPREDNISOLONE SOD SUCC 40 MG/ML VIAL IV SCH (08:20)
[2017-10-18] MEDS: ELTROMBOPAG OLAMINE 75 MG PO SCH ×2 (08:20→16:41)
[2017-10-18] MEDS: FOLIC ACID 1 MG TAB PO SCH (08:21)
[2017-10-18] MEDS: ENOXAPARIN SOD INJ 40 MG/0.4 ML SYR SC SCH (08:21)
[2017-10-18] MEDS: FUROSEMIDE 40 MG TAB PO SCH (08:21)
[2017-10-18] MEDS: PANTOPRAZOLE SOD 40 MG TABEC PO SCH (08:21)
[2017-10-18] MEDS: CINACALCET 30 MG TAB PO SCH (08:21)
[2017-10-18] MEDS: CARVEDILOL 3.125 MG TAB PO SCH (08:21)
[2017-10-18] MEDS: FEBUXOSTAT 80 MG TAB PO SCH (08:21)
[2017-10-18] MEDS: INSULIN LISPRO 100 UNIT/1 ML 3ML VIAL SQ SCH ×4 (08:24→21:00)
[2017-10-18] MEDS: ACETAMINOPHEN/CODEINE 300MG - 30MG TAB PO PRN (11:33)
--- NOTE | 2017-10-18 15:07 | Progress Note ---
DATE: Ms. Jones is doing well. No new complaints. PHYSICAL EXAMINATION GENERAL: She is currently alert and oriented. Does not seem to be in acute distress. VITALS: Stable and afebrile since admission. HEENT: She is nonicteric. NECK: Supple. CHEST: Clear. HEART: S1 and S2. No murmur. ABDOMEN: Soft. IMPRESSION 1. Urinary tract infection with Klebsiella pneumonia: Can switch to oral Cipro. 2. Gout: Acute attack. Switch to oral. 3. Acute kidney injury on chronic kidney disease, stage 3: Will follow. Job#: [id number] [place]
[2017-10-18] MEDS ORDERED: INSULIN DETEMIR 100 UNIT/ML PEN SQ ONE (17:30)
[2017-10-18] MEDS: CEFTRIAXONE SOD 1 GM VIAL IV SCH (21:02)
[2017-10-19] VITALS (7 sets, daily range): BP systolic 114–140; BP diastolic 56–67
[2017-10-19] MEDS: ACETAMINOPHEN/CODEINE 300MG - 30MG TAB PO PRN (02:00)
[2017-10-19] MEDS: LEVOTHYROXINE SODIUM 125 MCG TAB PO SCH (05:31)
[2017-10-19] MEDS: ELTROMBOPAG OLAMINE 75 MG PO SCH ×2 (08:58→17:00)
[2017-10-19] MEDS: FUROSEMIDE 40 MG TAB PO SCH (08:59)
[2017-10-19] MEDS: FEBUXOSTAT 80 MG TAB PO SCH (08:59)
[2017-10-19] MEDS: PANTOPRAZOLE SOD 40 MG TABEC PO SCH (08:59)
[2017-10-19] MEDS: PREDNISONE 20 MG TAB PO SCH (08:59)
[2017-10-19] MEDS: CARVEDILOL 3.125 MG TAB PO SCH (08:59)
[2017-10-19] MEDS: FOLIC ACID 1 MG TAB PO SCH (08:59)
[2017-10-19] MEDS: ENOXAPARIN SOD INJ 40 MG/0.4 ML SYR SC SCH (08:59)
[2017-10-19] MEDS: CINACALCET 30 MG TAB PO SCH (08:59)
[2017-10-19] MEDS: INSULIN DETEMIR 100 UNIT/ML PEN SQ SCH (09:00)
[2017-10-19] MEDS: INSULIN LISPRO 100 UNIT/1 ML 3ML VIAL SQ SCH ×4 (09:22→22:06)
[2017-10-19] MEDS: CEFTRIAXONE SOD 1 GM VIAL IV SCH (21:30)
[2017-10-20] VITALS (8 sets, daily range): BP systolic 117–137; BP diastolic 56–65
[2017-10-20] MEDS: LEVOTHYROXINE SODIUM 125 MCG TAB PO SCH (05:52)
[2017-10-20 07:07] LABS: ANION GAP 13.1 mmol/L (8-16); CALCIUM 10.4 mg/dL (8.4-10.2); CREATININE, SERUM 0.98 mg/dL (0.57-1.11); POTASSIUM 4.1 mmol/L (3.5-5.1)
[2017-10-20 08:56] LABS: BASOPHILS % 0.2 % (0.0-1.0); HEMATOCRIT 26.5 % (34.2-44.1); HEMOGLOBIN 8.4 g/dL (12.0-16.0); LYMPHOCYTES # (AUTO) 1.7 (1.0-3.2); LYMPHOCYTES % 18.6 % (18.0-39.1); MEAN CORPUSCULAR HGB CONC 31.7 g/dL (31-35); MEAN CORPUSCULAR VOLUME 107.3 fL (81-99); MONOCYTES # (AUTO) 0.6 (0.2-0.8); MONOCYTES % 6.3 % (4.4-11.3); NEUTROPHILS # (AUTO) 6.5 (2.1-6.9); NEUTROPHILS % 72.3 % (38.7-80.0); PLATELET COUNT 55 x10e3/uL (140-360); RED BLOOD COUNT 2.47 x10e6/uL (3.6-5.1); RED CELL DISTRIBUTION WIDTH 14.6 % (11.7-14.4)
[2017-10-20] MEDS: ELTROMBOPAG OLAMINE 75 MG PO SCH ×2 (09:00→17:00)
[2017-10-20] MEDS: INSULIN LISPRO 100 UNIT/1 ML 3ML VIAL SQ SCH ×4 (09:39→20:39)
[2017-10-20] MEDS: FUROSEMIDE 40 MG TAB PO SCH (09:49)
[2017-10-20] MEDS: PREDNISONE 20 MG TAB PO SCH (09:49)
[2017-10-20] MEDS: INSULIN DETEMIR 100 UNIT/ML PEN SQ SCH (09:49)
[2017-10-20] MEDS: CINACALCET 30 MG TAB PO SCH (09:49)
[2017-10-20] MEDS: FOLIC ACID 1 MG TAB PO SCH (09:49)
[2017-10-20] MEDS: FEBUXOSTAT 80 MG TAB PO SCH (09:49)
[2017-10-20] MEDS: ENOXAPARIN SOD INJ 40 MG/0.4 ML SYR SC SCH (09:49)
[2017-10-20] MEDS: PANTOPRAZOLE SOD 40 MG TABEC PO SCH (09:49)
[2017-10-20] MEDS: CARVEDILOL 3.125 MG TAB PO SCH (09:49)
[2017-10-20] MEDS ORDERED: INSULIN LISPRO 100 UNIT/1 ML 3ML VIAL SQ SCH (13:45)
[2017-10-20] MEDS: ACETAMINOPHEN/CODEINE 300MG - 30MG TAB PO PRN (14:48)
[2017-10-20] MEDS: CEFTRIAXONE SOD 1 GM VIAL IV SCH (20:39)
[2017-10-21] VITALS: BP 122/58
[2017-10-21 04:00] VITALS: BP 111/63
[2017-10-21] MEDS: LEVOTHYROXINE SODIUM 125 MCG TAB PO SCH (06:19)
[2017-10-21 06:25] LABS: BASOPHILS % 0.1 % (0.0-1.0); EOSINOPHILS % 0.2 % (0.0-6.0); HEMATOCRIT 26.4 % (34.2-44.1); HEMOGLOBIN 8.3 g/dL (12.0-16.0); LYMPHOCYTES # (AUTO) 2.3 (1.0-3.2); MEAN CORPUSCULAR HEMOGLOBIN 34.2 pg (28-32); MEAN CORPUSCULAR HGB CONC 31.4 g/dL (31-35); MEAN CORPUSCULAR VOLUME 108.6 fL (81-99); MONOCYTES # (AUTO) 0.5 (0.2-0.8); MONOCYTES % 5.5 % (4.4-11.3); NEUTROPHILS # (AUTO) 6.4 (2.1-6.9); NEUTROPHILS % 66.5 % (38.7-80.0); PLATELET COUNT 57 x10e3/uL (140-360); RED BLOOD COUNT 2.43 x10e6/uL (3.6-5.1); RED CELL DISTRIBUTION WIDTH 14.8 % (11.7-14.4)
[2017-10-21 06:51] LABS: ANION GAP 12.6 mmol/L (8-16); CALCIUM 10.1 mg/dL (8.4-10.2); CREATININE, SERUM 0.95 mg/dL (0.57-1.11); POTASSIUM 4.6 mmol/L (3.5-5.1)
[2017-10-21 07:25] VITALS: BP 115/58
[2017-10-21] MEDS: INSULIN LISPRO 100 UNIT/1 ML 3ML VIAL SQ SCH ×4 (07:30→12:52)
[2017-10-21 07:38] VITALS: BP 115/58
[2017-10-21] MEDS: CARVEDILOL 3.125 MG TAB PO SCH (09:00)
[2017-10-21] MEDS: ELTROMBOPAG OLAMINE 75 MG PO SCH (09:00)
[2017-10-21] MEDS ORDERED: INSULIN DETEMIR 100 UNIT/ML PEN SQ SCH ×2 (09:00→17:00)
[2017-10-21] MEDS: FUROSEMIDE 40 MG TAB PO SCH (09:27)
[2017-10-21] MEDS: PREDNISONE 20 MG TAB PO SCH (09:27)
[2017-10-21] MEDS: FEBUXOSTAT 80 MG TAB PO SCH (09:27)
[2017-10-21] MEDS: PANTOPRAZOLE SOD 40 MG TABEC PO SCH (09:27)
[2017-10-21] MEDS: ENOXAPARIN SOD INJ 40 MG/0.4 ML SYR SC SCH (09:27)
[2017-10-21] MEDS: CINACALCET 30 MG TAB PO SCH (09:27)
[2017-10-21] MEDS: FOLIC ACID 1 MG TAB PO SCH (09:27)
[2017-10-21] MEDS: ACETAMINOPHEN/CODEINE 300MG - 30MG TAB PO PRN ×2 (11:10→16:00)
[2017-10-21 11:47] VITALS: BP 108/67
[2017-10-21] MEDS ORDERED: PREDNISONE20 MG PO (12:22)
--- NOTE | 2017-10-21 13:18 | Discharge Summary ---
A patient of Dr. Kvng Mason, Dr. Martinez, Dr. Brown. A patient with a history of gout with flare and urinary tract infection, swelling in the ankles and wrists. History of hypothyroidism, hypertension. Nonsmoker, no alcohol use. She was found to have a urinary tract infection and was treated with Rocephin. She was also treated with corticosteroids at the request of Dr. Martinez. She has a HISTORY OF ADVERSE REACTION TO ALLOPURINOL AND COLCRYS. APPARENTLY SHE HAD DEVELOPED APLASTIC ANEMIA. She has been maintained on Promacta and folic acid. Patient is also diabetic. She gradually improved. She lives at home. Home health was requested for her and has been arranged. It was not possible to arrange that they meet her at her house. They will be there the day after discharge. This was discussed with Case Management. She will follow up with Dr. Brown. Dr. Brown has recommended anti-CCP antibody as well as HUGO and RA titers. These are pending. ANCA was negative as well as lupus screen. Blood sugar was difficult to control with the steroids. These will be tapered rapidly. She is discharged on prednisone 10 mg daily for 2 days, then 5 mg for an additional 5 days; Coreg 6.25 mg a day; Sensipar 30 mg a day; Promacta 75 mg b.i.d.; Uloric 40 mg a day; folic acid 1 mg a day; Lasix 40 b.i.d.; Levoxyl 112 mcg a day; Lyrica 1.8 a day; __Aldactone 25 mg a day. Renal function improved with hydration. Creatinine at discharge is 0.95. Continued to have anemia with hemoglobin of 8.5, platelet count of 57,000. Creatinine on admission was 1.87. Urine grew Klebsiella pneumoniae which was sensitive to Rocephin, which she received. Lasix was reduced to once a day, and __Aldactone has been discontinued. ANJEL FLOREZ MD Job#: [id number] EV cc dr john mason f/u dr mason and dr brown [facility]
[2017-10-21 14:08] LABS: FREE T4 (FREE THYROXINE) 0.9 ng/dL (0.9-1.8); THYROID STIMULATING HORMONE 2.442 uIU/mL (0.350-4.940)
--- NOTE | 2017-10-21 14:58 | Consultation ---
DATE OF CONSULTATION: October 21, 2017 ENDOCRINE CONSULTATION This is a patient of Dr. Pineda. Thank you very much for referring this patient. HISTORY OF PRESENT ILLNESS: This is a 62-year-old white female who is referred to me for evaluation of uncontrolled diabetes mellitus. Patient reportedly is a known diabetic for the last 10-plus years, has multiple complications from diabetes including severe diabetic sensorimotor neuropathy, chronic renal insufficiency. At home she takes about 50 units of Humalog with each meal and about 60 of Levemir at bedtime. Patient came to the hospital with a history of gouty arthritis. She also has history of chronic renal failure, hypertension, hypothyroidism and is on several other medications at home including the Victoza, spironolactone, Levoxyl, Uloric and Sensipar. During the hospital stay, the patient has been on steroids and her blood sugars have been significantly elevated. She also has history of adrenal adenoma in the past. PHYSICAL EXAMINATION: GENERAL: Today the patient is alert, awake, a little bit apprehensive. VITAL SIGNS: She is moderately overweight. Her heart rate is around 78. Blood pressure 136/86 mmHg. HEENT: Examination essentially unremarkable. Thyroid is palpable. Clinically she is near euthyroid. CHEST: Bilateral vesicular breathing. She has bilateral bronchospasm. CARDIAC: Both 1st and 2nd heart sounds. She has no 3rd or 4th heart sound. Ejection sound grade 2/6. Her lab evaluation shows her BUN and creatinine is 15.9. Her hemoglobin is 8.3 with hematocrit of 26.4 CLINICAL IMPRESSION: 1. Diabetes mellitus type 2, uncontrolled with complications. 2. Chronic gouty arthritis, on steroids. 3. Hypertension. 4. Adrenal adenoma. 5. Thrombocytopenia. 6. Urinary tract infection. The plan at this time is to do a hemoglobin A1c, thyroid function test. Monitor her blood sugars very closely. Adjust the insulin dose. Put her on Humalog with each meal. Thanks again for referring this patient. I will be following this patient with you. Job#: [id number] NALDO
[2017-10-21 15:45] VITALS: BP 130/61
[2017-10-21] MEDS ORDERED: INSULIN LISPRO 100 UNIT/1 ML 3ML VIAL SQ SCH ×2 (16:30)
== END 2017-10-21 16:45 | disposition home health service (06) | DRG 682 ==
LOC: ER 16:44 → ERHOLD 21:24 → MED/SURG3 23:11 → ACU 10-20 11:53 → MED/SURG3 10-20 11:54
PROVIDERS: ADMIT Internal Medicine Pulmonary Disease; ATTEND Internal Medicine Pulmonary Disease
DX: N17.9 Acute kidney failure, unspecified (principal); D61.1 Drug-induced aplastic anemia; E87.1 Hypo-osmolality and hyponatremia; N39.0 Urinary tract infection, site not specified; I12.9 Hypertensive chronic kidney disease with stage 1 through stage 4 chronic kidney disease, or unspecified chronic kidney disease; N18.3 Chronic kidney disease, stage 3 (moderate); E87.70 Fluid overload, unspecified; E86.0 Dehydration; D35.00 Benign neoplasm of unspecified adrenal gland; D69.6 Thrombocytopenia, unspecified; E11.65 Type 2 diabetes mellitus with hyperglycemia; B96.1 Klebsiella pneumoniae [K. pneumoniae] as the cause of diseases classified elsewhere; Z79.4 Long term (current) use of insulin; E11.22 Type 2 diabetes mellitus with diabetic chronic kidney disease; M10.072 Idiopathic gout, left ankle and foot; M10.071 Idiopathic gout, right ankle and foot; M10.032 Idiopathic gout, left wrist; M10.031 Idiopathic gout, right wrist; E03.9 Hypothyroidism, unspecified; Z79.52 Long term (current) use of systemic steroids; D63.1 Anemia in chronic kidney disease; D50.0 Iron deficiency anemia secondary to blood loss (chronic); T50.4X5A Adverse effect of drugs affecting uric acid metabolism, initial encounter
CPT/HCPCS: 36415; 51700; 71045; 71046; 71250; 80048; 80053; 81001; 82550; 82553; 82570; 82948; 83036; 83735; 83880; 84156; 84300; 84439; 84443; 84484; 84550; 85007; 85025; 85027; 85610; 85651; 85730; 86021; 86039; 86140; 86200; 86431; 87040; 87086; 87186; 93005; 93970; 96361; 96372; 97139; 99284; J0696; J1650; J2920; J7030